=== PATIENT | female | born 1935 | race Caucasian/White ===

== ENCOUNTER 2018-11-18 10:54 | Day surgery (SDC) | payer OTHER ==
[~2018-11-18] VITALS: Ht 180.3 cm; Wt 58.0 kg
[~2018-11-18 10:54] MED LIST: DIGO125T93 PO; DOCU-159 PO; METO-335 PO; PANT40TA3 PO; POTA20TA15 PO; RIVA20TA5 PO
[2018-11-18 11:08] VITALS: Ht 180.3 cm; Wt 58.0 kg
[2018-11-18 11:30] VITALS: BP 101/59; PULSE 72; RESP 16
[2018-11-18] MEDS ORDERED: PROPOFOL 40 ML ONE (11:49)
[2018-11-18] MEDS ORDERED: LIDOCAINE 100 MG SYRINGE ONE (11:49)
[2018-11-18] MEDS ORDERED: FENTAnyl 50 MCG/ML VIAL ONE (11:49)
[2018-11-18 12:45] VITALS: BP 94/47; PULSE 47; RESP 18
== END 2018-11-18 14:00 | disposition home or self-care (01) ==
LOC: SDS 10:54
PROVIDERS: ATTEND Internal Medicine Interventional Cardiology
DX: I48.0 Paroxysmal atrial fibrillation (principal); I10 Essential (primary) hypertension; J44.9 Chronic obstructive pulmonary disease, unspecified; R94.31 Abnormal electrocardiogram [ECG] [EKG]; I35.9 Nonrheumatic aortic valve disorder, unspecified
CPT/HCPCS: 80053; 85025; 85610; 85730; 93005; 93312; 93320; 93325; J2001; J3010